=== PATIENT | female | born 1950 | race Caucasian/White ===

== ENCOUNTER 2020-07-24 | Emergency (ER) | payer MEDICARE, OTHER ==
[2020-07-24] MEDS ORDERED: VENTOLIN HFA IN (19:18)
[2020-07-24] MEDS ORDERED: TESSALON PERLE100 MG PO (19:18)
[2020-07-24] MEDS ORDERED: MEDDOSEPAK PO (19:18)
[2020-07-24] MEDS ORDERED: AZITHROMYCIN500 MG PO (19:18)
== END 2020-07-24 19:28 | disposition home or self-care (01) ==
DX: U07.1 COVID-19 (principal)

== ENCOUNTER 2021-02-28 16:40 | Emergency (ER) | payer MEDICARE, OTHER ==
[~2021-02-28] VITALS: Ht 162.6 cm; Wt 90.0 kg
[~2021-02-28 16:40] MED LIST: AZITHROMYCIN500 MG PO; MEDDOSEPAK PO; TESSALON PERLE100 MG PO; VENTOLIN HFA IN
[2021-02-28] MEDS ORDERED: BACTROBAN TOP (17:12)
[2021-02-28 17:20] VITALS: BP 168/78
== END 2021-02-28 17:20 | disposition home or self-care (01) ==
LOC: ED 16:40
DX: Z48.817 Encounter for surgical aftercare following surgery on the skin and subcutaneous tissue (principal); Z85.828 Personal history of other malignant neoplasm of skin